=== PATIENT | female | born 1980 | race American Indian/Alaskan Native ===

== ENCOUNTER 2017-04-07 10:08 | Emergency (ER) | payer MEDICAID ==
[2017-04-07 10:12] VITALS: BP 119/84; PULSE 81; RESP 20; TEMP 97.6; O2SAT 99
--- NOTE | 2017-04-07 10:35 | C.PDOC ---
History Of Present Illness 37 year old female presents to the ER with a complaint of an allergic reaction. Patient was at work yesterday and states there was tuna and a variety of seafood ; she notes she did not eat any of it because she is allergic but reports having swelling and itchiness around her left eye. Patient took a benadryl at the time but still had swelling this morning that has worsened. Denies discharge , fever, vision change, SOB, or tongue/lip swelling. Time Seen by Provider: 04/07/17 10:22 Chief Complaint (Nursing): Allergic Reaction History Per: Patient History/Exam Limitations: no limitations Onset/Duration Of Symptoms: Days Current Symptoms Are (Timing): Still Present Possible Cause: Food Associated Symptoms: Swelling, Itching. denies: Dyspnea Home/EMS Treatment: Benadryl Recent travel outside of the [place]: No Past Medical History Reviewed: Historical Data, Nursing Documentation, Vital Signs Vital Signs: Last Vital Signs Temp 97.6 F 04/07/17 10:11 Pulse 81 04/07/17 10:11 Resp 20 04/07/17 10:11 BP 119/84 04/07/17 10:11 Pulse Ox 99 04/07/17 12:07 - Medical History PMH: No Chronic Diseases Surgical History: No Surg Hx - [facility] Procedures MONITORING NOS (12/23/12) REPAIR OB LACERATION NEC (12/23/12) Family History: States: Unknown Family Hx - Social History Hx Alcohol Use: No Hx Substance Use: No - Immunization History Hx Tetanus Toxoid Vaccination: No Hx Influenza Vaccination: No Hx Pneumococcal Vaccination: No Review Of Systems ENT: Positive for: Other (Left eye itchiness and swelling) Physical Exam - Physical Exam Appears: Non-toxic, No Acute Distress Skin: Normal Color, Warm, Dry Head: Atraumatic, Normacephalic Eye(s): bilateral: Normal Inspection, PERRL, EOMI, left: Other (Mild swelling below eye. No erythema or discharge) Oral Mucosa: Moist Tongue: Normal Appearing, No Swelling Lips: Normal Appearing, No Swelling Chest: Symmetrical, No Tenderness Cardiovascular: Rhythm Regular Respiratory: Normal Breath Sounds, No Accessory Muscle Use, No Stridor, No Wheezing Neurological/Psych: Oriented x3, Normal Speech, Normal Cognition ED Course And Treatment O2 Sat by Pulse Oximetry: 99 (room air) Pulse Ox Interpretation: Normal Progress Note: Claritin, pepcid, and prednisone administered. Patient reports improvement of symptoms, will discharge with Rx and instructions to follow up with PMD. Return precautions given. Disposition Counseled Patient/Family Regarding: Diagnosis, Need For Followup, Rx Given - Disposition Referrals: Pawel Hubbard MD [Staff Provider] - Disposition: HOME/ ROUTINE Disposition Time: 10:45 Condition: STABLE Additional Instructions: FOLLOW UP WITH YOUR DOCTOR IN 1-2 DAYS USE MEDICATIONS DIRECTED RETURN TO ER IF SYMPTOMS WORSEN Prescriptions: Loratadine [Claritin] 10 mg PO DAILY PRN #20 tab PRN Reason: itching, allergies predniSONE [predniSONE Tab] 40 mg PO DAILY #6 tab Instructions: Allergies (ED) Forms: [employer] (Bermudian), Work Excuse Print Language: CROATIAN - POA Present On Arrival: None - Clinical Impression Clinical Impression: Allergic reaction - Scribe Statement The provider has reviewed the documentation as recorded by the Scribnoah Shaw All medical record entries made by the Scribe were at my direction and personally dictated by me. I have reviewed the chart and agree that the record accurately reflects my personal performance of the history, physical exam, medical decision making, and the department course for this patient. I have also personally directed, reviewed, and agree with the discharge instructions and disposition.
== END 2017-04-07 10:45 | disposition home or self-care (01) ==
LOC: C.ER 10:08
DX: T78.49XA Other allergy, initial encounter (principal); X58.XXXA Exposure to other specified factors, initial encounter

== ENCOUNTER 2017-09-10 06:44 | Inpatient (IN) | payer MEDICAID, OTHER ==
[2017-09-10 07:25] LABS: HCG,QUALITATIVE URINE NEGATIVE (NEGATIVE)
[2017-09-10 07:32] LABS: SQUAMOUS EPITHIAL 7 /hpf (0-5); URINE BACTERIA RARE (<OCC); URINE BILIRUBIN NEGATIVE (NEGATIVE); URINE BLOOD 2+ (NEGATIVE); URINE CLARITY Hazy (Clear); URINE COLOR Yellow (YELLOW); URINE GLUCOSE (UA) NORMAL (Normal); URINE LEUKOCYTE ESTERASE NEG Leu/uL (Negative); URINE PROTEIN NEGATIVE (NEGATIVE)
--- NOTE | 2017-09-10 07:35 | C.PDOC ---
History Of Present Illness 37 y/o female presents to ED with c/o diffuse sharp abdominal since yesterday associated with chills. Patient states intensity of pain has improved but pain is still there and reports x1 episode of vomiting today. Patient denies fever, diarrhea, dysuria, back pain, vaginal bleeding or any other complaints at this time. Time Seen by Provider: 09/10/17 07:00 Chief Complaint (Nursing): Abdominal Pain History Per: Patient History/Exam Limitations: no limitations Onset/Duration Of Symptoms: Days Current Symptoms Are (Timing): Still Present Location Of Pain/Discomfort: Diffuse Radiation Of Pain To:: None Quality Of Discomfort: Sharp Associated Symptoms: Chills, Vomiting Past Medical History Reviewed: Historical Data, Nursing Documentation, Vital Signs Vital Signs: Last Vital Signs Temp 98.6 F 09/11/17 08:53 Pulse 88 09/11/17 08:53 Resp 20 09/11/17 08:53 BP 117/80 09/11/17 08:53 Pulse Ox 100 09/11/17 08:53 - Medical History PMH: No Chronic Diseases Surgical History: No Surg Hx - [facility] Procedures MONITORING NOS (12/23/12) REPAIR OB LACERATION NEC (12/23/12) Family History: States: No Known Family Hx - Social History Hx Alcohol Use: No Hx Substance Use: No - Immunization History Hx Tetanus Toxoid Vaccination: No Hx Influenza Vaccination: No Hx Pneumococcal Vaccination: No Review Of Systems Constitutional: Positive for: Chills. Negative for: Fever Gastrointestinal: Positive for: Vomiting, Abdominal Pain. Negative for: Diarrhea Genitourinary: Negative for: Vaginal Bleeding Skin: Negative for: Rash Physical Exam - Physical Exam Appears: Non-toxic, No Acute Distress Skin: Warm, Dry, No Rash Head: Atraumatic, Normacephalic Oral Mucosa: Moist Neck: Normal ROM, Supple Cardiovascular: Rhythm Regular Respiratory: Normal Breath Sounds, No Rales, No Rhonchi, No Wheezing Gastrointestinal/Abdominal: Bowel Sounds, Soft, Tenderness (diffuse), Distention , No Guarding, No Rebound Back: No CVA Tenderness Extremity: Normal ROM, Capillary Refill (<2 seconds) Neurological/Psych: Oriented x3, Normal Speech, Normal Cognition ED Course And Treatment - Laboratory Results Result Diagrams: 09/11/17 08:57 09/10/17 07:47 O2 Sat by Pulse Oximetry: 100 (RA) Pulse Ox Interpretation: Normal Medical Decision Making Medical Decision Making: Plan: Abdomen xray, Blood work ordered. Zofran and IV fluids administered [address] results from [address] Newell; diverticulitis with air. surgery resident paged, is in the or and unavailable for [address] Cristopher coley. surgery resident saw pt and did consult. pt admitted to Dr Hubbard, discussed with him. Disposition Discussed With Dr.: Pawel Hubbard - Disposition Disposition: HOSPITALIZED Disposition Time: 13:42 Condition: GOOD - Clinical Impression Clinical Impression: Diverticulitis of colon with perforation - PA / NEW BUSINESS CLERK / Resident Statement MD/DO has reviewed & agrees with the documentation as recorded. - Scribe Statement The provider has reviewed the documentation as recorded by the Tobiasibnoah Maya All medical record entries made by the Tobiasibnoah were at my direction and personally dictated by me. I have reviewed the chart and agree that the record accurately reflects my personal performance of the history, physical exam, medical decision making, and the department course for this patient. I have also personally directed, reviewed, and agree with the discharge instructions and disposition.
[2017-09-10 07:54] LABS: BASO # 0.1 K/uL (0.0-0.2); BASO % 0.4 % (0.0-2.0); EOS % 0.1 % (0.0-4.0); HEMOGLOBIN 12.4 g/dL (11.0-16.0); LYMPH # 1.3 K/uL (1.0-4.3); LYMPH % 9.3 % (20.0-40.0); MEAN CORPUSCULAR HGB CONC 33.8 g/dL (33.0-37.0); MEAN PLATELET VOLUME 9.9 fL (7.2-11.7); MONO % 6.9 % (0.0-10.0); NEUT % 83.3 % (50.0-75.0); PLATELET COUNT 241 K/uL (130-400); RBC 4.42 Mil/uL (3.80-5.20); RED CELL DISTRIBUTION WIDTH 13.2 % (11.5-14.5); WHITE BLOOD COUNT 14.4 K/uL (4.8-10.8)
[2017-09-10 08:07] LABS: ALB/GLOB RATIO 1.1 (1.0-2.1); ALBUMIN 4.1 g/dL (3.5-5.0); ALT/SGPT 20 U/L (9-52); AST/SGOT 19 U/L (14-36); BLOOD UREA NITROGEN 10 mg/dL (7-17); CALCIUM 8.8 mg/dl (8.6-10.4); GFR AFRICAN-AMERICAN > 60; GFR NON-AFRICAN AMERICAN > 60; LIPASE 15 U/L (23-300)
[2017-09-10 08:20] LABS: LYMPHOCYTE 9 % (20-40); MONOCYTE 5 % (0-10); NEUTROPHIL 86 % (50-75); PLATELET ESTIMATE NORMAL (NORMAL); TOTAL CELLS COUNTED 100
[2017-09-10] MEDS ORDERED: Iohexol 240 (50 ml) PO ONE (08:52)
--- NOTE | 2017-09-10 09:11 | RAD ---
HISTORY: Vomiting and abdominal pain COMPARISON: No prior. FINDINGS: BOWEL: Normal. No obstruction. No free air. BONES: Normal. OTHER FINDINGS: None. IMPRESSION: No significant or acute findings to account for/ related to the clinical presentation.
[2017-09-10] MEDS ORDERED: Oxycodone/Acetaminophen 5/325 mg Tab PO STA (09:15)
[2017-09-10] MEDS ORDERED: Oxycodone/Acetaminophen 5/325 mg Tab ONE (09:18)
[2017-09-10] MEDS ORDERED: Iohexol 240 (50 ml) ONE (09:24)
[2017-09-10] MEDS ORDERED: Ciprofloxacin 400mg/200ml D5W 400 MG/200 ML BAG IVPB STA (12:55)
[2017-09-10] MEDS ORDERED: metroNIDAZOLE IV 500 mg/100 ml 500 MG/100 ML BAG IVPB STA (12:56)
--- NOTE | 2017-09-10 13:01 | CT ---
PROCEDURE: CT Abdomen and Pelvis with Oral contrast. HISTORY: Diffuse abdominal pain. COMPARISON: None. TECHNIQUE: Contiguous axial images of the abdomen and pelvis. Oral contrast was administered. No IV contrast given. Coronal and Sagittal reformats generated. Radiation dose: Total exam DLP = This CT exam was performed using one or more of the following dose reduction techniques: Automated exposure control, adjustment of the mA and/or kV according to patient size, and/or use of iterative reconstruction technique. FINDINGS: LOWER THORAX: Mild passive/ dependent type atelectasis both posterior lower lung fuentes. There may also be some minimal concomitant scarring changes. . . . There is a small hiatal hernia slight wall thickening of the distal esophagus likely due to protrusion of gastric mucosa. Heart size is mildly enlarged. No significant pericardial effusion. LIVER: Liver is mildly enlarged measuring just over 19 cm in CC dimension. Liver demonstrates relatively normal attenuation without obvious masses or collections. GALLBLADDER AND BILE DUCTS: Gallbladder is physiologically distended. No evidence of intraluminal gallbladder calculi PANCREAS: Unremarkable. No mass. No ductal dilatation. SPLEEN: Spleen exhibits normal size and attenuation pattern without mass collection or calcification. This ADRENALS: There are no adrenal lesions. KIDNEYS AND URETERS: Unrema kidneys demonstrate relatively symmetric size. No evidence of nephrolithiasis or hydronephrosis. No obvious renal mass or collection. BLADDER: Urinary bladder is incompletely distended which may account for slight thick-walled appearance. Correlation with urinalysis recommended. REPRODUCTIVE: Uterus is slightly bulky in appearance without prominent endometrial canal. . Follow-up pelvic ultrasound as suggested for further evaluation. APPENDIX: Normal appearing appendix best seen on coronal image number [id number]. BOWEL: Evaluation of the bowel is somewhat limited due to incomplete opacification. Stomach is distended with oral contrast material and air. . The visualized loops of small bowel exhibit relatively normal contour and caliber. No evidence of acute mechanical small bowel obstruction with oral contrast material seen extending into large bowel to the level of the hepatic flexure region. . There is wall thickening a short segment of the sigmoid colon which contains several scattered colonic diverticula. Findings are most consistent with acute diverticulitis. . The additionally, there are infiltration changes seen in the adjacent mesentery with at least 1 discrete collection of air which measures approximately 17.3 x 11.3 mm best seen on axial image number [id number]. This could represent a large colonic diverticulum or possibly a small of walled-off perforation or small abscess. Clinical correlation recommended. PERITONEUM: As above. . Small fat containing umbilical hernia. LYMPH NODES: Unremarkable. No enlarged lymph nodes. VASCULATURE: Unremarkable. No aortic aneurysm. BONES: The osseous structures appear intact. OTHER FINDINGS: None. IMPRESSION: Findings consistent with acute diverticulitis involving a short segment of the sigmoid colon with marked wall thickening and infiltration of the adjacent mesenteric. There is a small collection of air seen adjacent to anterior inferior margin of this segment of inflamed bowel that could represent a large colonic diverticulum, walled-off perforation and/or abscess appear clinical correlation recommended. Note these findings were discussed with emergency room ANN Arevalo at approximately 12:50 p.m. with written down and read back verification. . Hepatomegaly. Bulky uterus with prominent endometrial canal. Follow-up of pelvic ultrasound recommended. See above as for additional details.
[2017-09-10] MEDS ORDERED: Ciprofloxacin 400mg/200ml D5W 400 MG/200 ML BAG IVPB ONE (13:05)
[2017-09-10] MEDS ORDERED: metroNIDAZOLE IV 500 mg/100 ml 500 MG/100 ML BAG ONE (13:06)
--- NOTE | 2017-09-10 14:35 | CP.PCM.CON ---
History of Present Illness - History of Present Illness History of Present Illness: Surgery: Dr. Nicholas Pt is a 37F with no significant PMHx who presents to for complaints of abdominal pain x 1 day. Pt states pain started yesterday afternoon and was diffuse in nature. She waited for the pain to get better, however pain got worse and this morning she decided to come to the hospital. She also admits to 1 episode of NBNB vomiting this morning and states her last BM was yesterday and was normal. Pt denies having similar episode in the past. Denies F/C, chest pain or SOB. Pt states she has never had a colonoscopy or endoscopy. In the ER, pt had CT abdomen/pelvis which shows sigmoid diverticulitis with possible microperforation. Surgery called to evaluate PMH: denies PSH: tubal ligation SocialHx: denies smoking/EtOH NKDA Review of Systems - Review of Systems All systems: reviewed and no additional remarkable complaints except (as per HPI ) Past Patient History - Infectious Disease Hx of Infectious Diseases: None - Past Social History Smoking Status: Never Smoked - PSYCHIATRIC Hx Substance Use: No - SURGICAL HISTORY Hx Surgeries: No - ANESTHESIA Hx Anesthesia: No Hx Anesthesia Reactions: No Meds Allergies/Adverse Reactions: Allergies Allergy/AdvReac Type Severity Reaction Status Date / Time lobster Allergy SWELLING Uncoded 09/10/17 06:52 - Medications Medications: Current Medications Ciprofloxacin (Cipro 400mg/200ml Dsw) 400 mg in 200 mls @ 133 mls/hr IVPB Q12H ZAK PRN Reason: Protocol Metronidazole (Flagyl) 500 mg in 100 mls @ 100 mls/hr IVPB Q8 ZAK PRN Reason: Protocol Physical Exam - Constitutional Appears: Well, No Acute Distress - Head Exam Head Exam: ATRAUMATIC, NORMOCEPHALIC - Eye Exam Eye Exam: Normal appearance - ENT Exam ENT Exam: Mucous Membranes Moist - Respiratory Exam Respiratory Exam: NORMAL BREATHING PATTERN - Cardiovascular Exam Cardiovascular Exam: Tachycardia - GI/Abdominal Exam GI & Abdominal Exam: Soft, Tenderness (periumbilical ). absent: Distended, Guarding, Rebound - Neurological Exam Neurological exam: Alert, Oriented x3 - Skin Skin Exam: Dry, Warm Results - Vital Signs Recent Vital Signs: Last Vital Signs Temp 99.1 F 09/10/17 12:56 Pulse 84 04/20/18 12:56 Resp 18 09/10/17 12:56 BP 99/62 L 09/10/17 12:56 Pulse Ox 100 09/10/17 13:47 - Labs Result Diagrams: 09/10/17 07:47 09/10/17 07:47 Labs: Laboratory Results - last 24 hr 09/10/17 09/10/17 09/10/17 07:08 07:47 07:47 WBC 14.4 H RBC 4.42 Hgb 12.4 Hct 36.7 MCV 83.0 MCH 28.0 MCHC 33.8 RDW 13.2 Plt Count 241 MPV 9.9 Neut % (Auto) 83.3 H Lymph % (Auto) 9.3 L Emm[place] % (Auto) 6.9 Eos % (Auto) 0.1 Baso % (Auto) 0.4 Neut # (Auto) 12.0 H Lymph # (Auto) 1.3 Emm[place] # (Auto) 1.0 H Eos # (Auto) 0.0 Baso # (Auto) 0.1 Neutrophils % (Manual) 86 H Lymphocytes % (Manual) 9 L Monocytes % (Manual) 5 Platelet Estimate Normal Sodium 139 Potassium 3.9 Chloride 99 Carbon Dioxide 26 Anion Gap 19 BUN 10 Creatinine 0.8 Est GFR ( Amer) > 60 Est GFR (Non-Af Amer) > 60 Random Glucose 103 Calcium 8.8 Total Bilirubin 0.8 AST 19 ALT 20 Alkaline Phosphatase 81 Total Protein 7.7 Albumin 4.1 Globulin 3.6 Albumin/Globulin Ratio 1.1 Lipase 15 L Urine Color Yellow Urine Clarity Hazy Urine pH 7.0 Ur Specific [place] 1.018 Urine Protein Negative Urine Glucose (UA) Normal Urine Ketones Negative Urine Blood 2+ H Urine Nitrate Negative Urine Bilirubin Negative Urine Urobilinogen 2.0 H Ur Leukocyte Esterase Neg Urine WBC (Auto) 1 Urine RBC (Auto) 15 H Ur Squamous Epith Cells 7 H Urine Bacteria Rare Urine HCG, Qual Negative - Imaging and Cardiology CT scan - abdomen Status: Image reviewed by me, Report reviewed by me Assessment & Plan - Assessment and Plan (Free Text) Assessment: 37F with acute diverticulitis; [place] Class Ia Plan: - keep NPO with IVF & IV abx - conservative management with pain control - serial abdominal exams - will continue to monitor - d/w Dr. Cristopher Saenz, PGY-3
[2017-09-10] MEDS ORDERED: Lactated Ringer's 1,000 ML ONE (16:13)
[2017-09-10] MEDS: Lactated Ringer's 1,000 ML IV SCH (16:13)
[2017-09-10 19:44] VITALS: RESP 20
[2017-09-10] MEDS: metroNIDAZOLE IV 500 mg/100 ml 500 MG/100 ML BAG IVPB SCH (21:55)
[2017-09-11] MEDS: Ciprofloxacin 400mg/200ml D5W 400 MG/200 ML BAG IVPB SCH ×2 (02:38→14:12)
[2017-09-11] MEDS: Lactated Ringer's 1,000 ML IV SCH ×4 (02:39→20:51)
[2017-09-11] MEDS: metroNIDAZOLE IV 500 mg/100 ml 500 MG/100 ML BAG IVPB SCH ×3 (05:40→21:30)
--- NOTE | 2017-09-11 08:44 | CP.PCM.PN ---
Subjective - Date & Time of Evaluation Date of Evaluation: 09/11/17 Time of Evaluation: 06:50 - Subjective Subjective: Patient seen and examined at bedside this AM. patient denies any nausea, vomiting, is passing gas but no bowel movement. States her pain is greatly improved. Objective - Vital Signs/Intake and Output Vital Signs (last 24 hours): Temp Pulse Resp BP Pulse Ox 99.9 F H 98 H 20 120/70 97 09/11/17 00:00 09/11/17 00:00 09/11/17 00:00 09/11/17 00:00 09/11/17 00:00 - Medications Medications: Current Medications Ciprofloxacin (Cipro 400mg/200ml Dsw) 400 mg in 200 mls @ 133 mls/hr IVPB Q12H ZAK PRN Reason: Protocol Last Admin: 09/11/17 02:38 Dose: 133 mls/hr Metronidazole (Flagyl) 500 mg in 100 mls @ 100 mls/hr IVPB Q8 ZAK PRN Reason: Protocol Last Admin: 09/11/17 05:40 Dose: 100 mls/hr Lactated Ringer's (Lactated Ringer's) 1,000 mls @ 125 mls/hr IV .Q8H ZAK Last Admin: 09/11/17 02:39 Dose: Not Given - Labs Labs: 09/10/17 07:47 09/10/17 07:47 - Constitutional Appears: Well, Non-toxic, No Acute Distress - Head Exam Head Exam: ATRAUMATIC, NORMOCEPHALIC - Eye Exam Eye Exam: Normal appearance. absent: Conjunctival injection, Scleral icterus - ENT Exam ENT Exam: Mucous Membranes Moist, Normal Oropharynx - Respiratory Exam Respiratory Exam: NORMAL BREATHING PATTERN. absent: Accessory Muscle Use, Respiratory Distress - GI/Abdominal Exam GI & Abdominal Exam: Distended (mild), Soft, Tenderness (mild RLQ and LLQ tenderness) - Extremities Exam Extremities Exam: absent: Calf Tenderness, Pedal Edema, Tenderness - Neurological Exam Neurological Exam: Alert, Awake, Oriented x3 - Skin Skin Exam: Dry, Intact, Normal Color, Warm Assessment and Plan - Assessment and Plan (Free Text) Assessment: 37F with diverticulitis of the sigmoid colon Plan: -Continue NPO -F/U am labs -Monitor bowel function -PRN pain for nausea and vomiting -Continue antibiotics -Encourage ambulation -No indication for surgical intervention at this time, will continue to monitor closely. Patient will need a colonoscopy as outpatient Discussed with Dr. Cristopher Stapleton, PGY2
[2017-09-11 09:17] LABS: HEMOGLOBIN 10.9 g/dL (11.0-16.0); MEAN CELL VOLUME 83.2 fL (81.0-99.0); MEAN CORPUSCULAR HEMOGLOBIN 27.6 pg (27.0-31.0); MEAN CORPUSCULAR HGB CONC 33.1 g/dL (33.0-37.0); MEAN PLATELET VOLUME 9.6 fL (7.2-11.7); RBC 3.95 Mil/uL (3.80-5.20); RED CELL DISTRIBUTION WIDTH 13.3 % (11.5-14.5); WHITE BLOOD COUNT 12.8 K/uL (4.8-10.8)
[2017-09-12] MEDS: Lactated Ringer's 1,000 ML IV SCH (00:30)
[2017-09-12] MEDS: Ciprofloxacin 400mg/200ml D5W 400 MG/200 ML BAG IVPB SCH ×2 (01:01→13:59)
[2017-09-12] MEDS: metroNIDAZOLE IV 500 mg/100 ml 500 MG/100 ML BAG IVPB SCH ×2 (05:19→13:58)
[2017-09-12] MEDS: Potassium Ch 20mEq in D5-1/2NS 1,000 ML IV SCH ×2 (05:25→23:21)
[2017-09-12 07:54] LABS: BASO % 0.4 % (0.0-2.0); EOS # 0.1 K/uL (0.0-0.7); EOS % 1.3 % (0.0-4.0); LYMPH # 1.7 K/uL (1.0-4.3); LYMPH % 19.9 % (20.0-40.0); MEAN CORPUSCULAR HGB CONC 33.7 g/dL (33.0-37.0); MEAN PLATELET VOLUME 10.2 fL (7.2-11.7); MONO # 0.6 K/uL (0.0-0.8); MONO % 7.3 % (0.0-10.0); NEUT % 71.1 % (50.0-75.0); NRBC % 0.1 % (0.0-2.0); RBC 3.95 Mil/uL (3.80-5.20); RED CELL DISTRIBUTION WIDTH 13.2 % (11.5-14.5); WHITE BLOOD COUNT 8.4 K/uL (4.8-10.8)
--- NOTE | 2017-09-12 08:36 | CP.PCM.PN ---
Subjective - Date & Time of Evaluation Date of Evaluation: 09/12/17 Time of Evaluation: 07:00 - Subjective Subjective: Patient seen and examined at bedside this AM. No adverse events overnight. Patient did have several bouts of diarrhea overnight and is passing gas but states that she feels greatly improved in general, no nausea, vomiting, or pain. Objective - Vital Signs/Intake and Output Vital Signs (last 24 hours): Temp Pulse Resp BP Pulse Ox 98.2 F 75 20 127/77 97 09/12/17 08:05 09/12/17 08:05 09/12/17 08:05 09/12/17 08:05 09/12/17 08:05 Intake and Output: 09/12/17 09/12/17 06:59 18:59 Intake Total 3000 Balance 3000 - Medications Medications: Current Medications Acetaminophen (Tylenol 325mg Tab) 650 mg PO Q6 PRN PRN Reason: Pain, moderate (4-7) Ciprofloxacin (Cipro 400mg/200ml Dsw) 400 mg in 200 mls @ 133 mls/hr IVPB Q12H ZAK PRN Reason: Protocol Last Admin: 09/12/17 01:01 Dose: 133 mls/hr Metronidazole (Flagyl) 500 mg in 100 mls @ 100 mls/hr IVPB Q8 ZAK PRN Reason: Protocol Last Admin: 09/12/17 05:19 Dose: 100 mls/hr Potassium Chloride/Dextrose/Sod Cl (Potassium Chl 20 Meq In D5-1/2ns) 1,000 mls @ 115 mls/hr IV .Q8H42M ON LICENSE OF [facility] Last Admin: 09/12/17 05:25 Dose: 115 mls/hr Ondansetron HCl (Zofran Inj) 4 mg IVP Q6H PRN PRN Reason: Nausea/Vomiting - Labs Labs: 09/12/17 07:42 09/10/17 07:47 - Constitutional Appears: Well, Non-toxic, No Acute Distress - Head Exam Head Exam: ATRAUMATIC, NORMOCEPHALIC - Eye Exam Eye Exam: Normal appearance. absent: Conjunctival injection, Scleral icterus - ENT Exam ENT Exam: Mucous Membranes Moist, Normal Oropharynx - Respiratory Exam Respiratory Exam: NORMAL BREATHING PATTERN. absent: Accessory Muscle Use, Respiratory Distress - GI/Abdominal Exam GI & Abdominal Exam: Soft, Tenderness (mild tenderness in the BL lower quadrans) . absent: Distended, Rigid, Rebound - Neurological Exam Neurological Exam: Alert, Awake, Oriented x3 - Psychiatric Exam Psychiatric exam: Normal Affect, Normal Mood - Skin Skin Exam: Dry, Intact, Normal Color, Warm Assessment and Plan - Assessment and Plan (Free Text) Assessment: 37F with acute diverticulitis with possible microperforation, clinically improving Plan: -Continue to monitor vitals and bowel function -WBC wnl today -Advance to [facility]D -PRN tylenol for pain -No surgical intervention indicated at this time--will continue to follow -will need colonoscopy as an outpatient after acute flare has resolved Discussed with Dr. Cristopher Stapleton PGY2
--- NOTE | 2017-09-13 07:23 | CP.PCM.PN ---
Subjective - Date & Time of Evaluation Date of Evaluation: 09/13/17 Time of Evaluation: 09:00 - Subjective Subjective: Medicine Progress Note- Dr. Hubbard's service Patient seen and examined in no apparent acute distress. Patient states that she was experiencing abdominal pain four days prior. Patient states that it was diffuse in nature and thus she came to the hospital for further evaluation. Patient states that she non bloody- non bilious vomited once while at home. Patient being seen here by the surgery team. She states that her pain improved over the course of her stay here. She admits to feeling better yesterday. She has been tolerating a liquid diet, and been having bowel movements. She currently denies chest pain, nausea, vomiting, or abdominal pain at this time. PMHx- denies PSHx TUbal ligation 3-4 years prior Fam Hx- Parents have DM Social Hx- denies tobacco, illicit drug use or alcohol use Meds- denies Allergies- Patietn denied; however the medical record states lobster. Will verify Objective - Vital Signs/Intake and Output Vital Signs (last 24 hours): Temp Pulse Resp BP Pulse Ox 98.1 F 66 20 145/91 H 97 09/13/17 00:00 09/13/17 00:00 09/13/17 00:00 09/13/17 00:00 09/13/17 00:00 Intake and Output: 09/13/17 09/13/17 06:59 18:59 Intake Total 500 Balance 500 - Medications Medications: Current Medications Acetaminophen (Tylenol 325mg Tab) 650 mg PO Q6 PRN PRN Reason: Pain, moderate (4-7) Ciprofloxacin (Cipro) 500 mg PO BID ZAK PRN Reason: Protocol Last Admin: 09/12/17 17:58 Dose: 500 mg Potassium Chloride/Dextrose/Sod Cl (Potassium Chl 20 Meq In D5-1/2ns) 1,000 mls @ 115 mls/hr IV .Q8H42M [facility] Last Admin: 09/12/17 23:21 Dose: Not Given Metronidazole (Flagyl) 500 mg PO Q8 ZAK PRN Reason: Protocol Last Admin: 09/13/17 05:46 Dose: 500 mg Ondansetron HCl (Zofran Inj) 4 mg IVP Q6H PRN PRN Reason: Nausea/Vomiting Ondansetron HCl (Zofran Odt) 4 mg PO Q6H PRN PRN Reason: Nausea/Vomiting - Labs Labs: 09/12/17 07:42 09/10/17 07:47 - Constitutional Appears: Non-toxic, No Acute Distress - Head Exam Head Exam: ATRAUMATIC, NORMAL INSPECTION, NORMOCEPHALIC - Eye Exam Eye Exam: EOMI, Normal appearance, PERRL Pupil Exam: NORMAL ACCOMODATION - ENT Exam ENT Exam: Mucous Membranes Moist - Neck Exam Neck Exam: Full ROM - Respiratory Exam Respiratory Exam: NORMAL BREATHING PATTERN. absent: Wheezes - Cardiovascular Exam Cardiovascular Exam: +S1, +S2 - GI/Abdominal Exam GI & Abdominal Exam: Soft, Normal Bowel Sounds. absent: Distended, Guarding, Rigid, Tenderness - Extremities Exam Extremities Exam: Full ROM, Normal Inspection - Back Exam Back Exam: Full ROM, NORMAL INSPECTION - Neurological Exam Neurological Exam: Alert, Awake, Oriented x3 - Psychiatric Exam Psychiatric exam: Normal Affect, Normal Mood - Skin Skin Exam: Dry, Normal Color, Warm Assessment and Plan (1) Diverticulitis Assessment & Plan: Patient with leukocytosis on admission, Now resolved Initially NPO. Now tolerating a full liquid diet- Will consider advancing to soft bland diet Patient on Cipro and Flagyl and IVF with potassium supplementation Will add on Florastor Nausea control Pain control F/U Surgery recommendations Patient would benefit from colonoscopy in the future once acute bout has resolved Status: Acute (2) Prophylactic measure Assessment & Plan: SCDs Ambulates No GI Prophylaxis indicated at this point DC instructions Patient is medically stable for discharge home. Patient to follow up with Dr. Hubbard's office within one week. Patient should follow up with Surgery team, Dr. Nicholas within two weeks. Patient will need a referral to see a GI specialist to obtain a colonoscopy. Patient to continue a full liquid / semi soft diet through the end of the week. Patient to continue antibiotics Flagyl and Ciprofloxacin as indicated. Patient should eat a probiotic yogurt daily. If symptoms return, go to the emergency room. instructions explained to patient who is aware. Management and planning per attending Dr. Hubbard. Status: Acute
[2017-09-13 07:33] VITALS: BP 121/81; PULSE 70; TEMP 98.2; O2SAT 96
--- NOTE | 2017-09-13 07:53 | CP.PCM.PN ---
Subjective - Date & Time of Evaluation Date of Evaluation: 09/13/17 Time of Evaluation: 07:48 - Subjective Subjective: surgery: Dr. Nicholas Pt seen and examined. No acute overnight events. Pt states she's feeling a lot better and her abdominal pain has resolved. She is able to tolerate liquids without N/V. Denies F/C. Objective - Vital Signs/Intake and Output Vital Signs (last 24 hours): Temp Pulse Resp BP Pulse Ox 98.2 F 70 20 121/81 96 09/13/17 07:30 09/13/17 07:30 09/13/17 07:30 09/13/17 07:30 09/13/17 07:30 Intake and Output: 09/13/17 09/13/17 06:59 18:59 Intake Total 500 Balance 500 - Medications Medications: Current Medications Acetaminophen (Tylenol 325mg Tab) 650 mg PO Q6 PRN PRN Reason: Pain, moderate (4-7) Ciprofloxacin (Cipro) 500 mg PO BID ZAK PRN Reason: Protocol Last Admin: 09/12/17 17:58 Dose: 500 mg Potassium Chloride/Dextrose/Sod Cl (Potassium Chl 20 Meq In D5-1/2ns) 1,000 mls @ 115 mls/hr IV .[id number] [facility] [place] Last Admin: 09/12/17 23:21 Dose: Not Given Metronidazole (Flagyl) 500 mg PO Q8 ZAK PRN Reason: Protocol Last Admin: 09/13/17 05:46 Dose: 500 mg Ondansetron HCl (Zofran Inj) 4 mg IVP Q6H PRN PRN Reason: Nausea/Vomiting Ondansetron HCl (Zofran Odt) 4 mg PO Q6H PRN PRN Reason: Nausea/Vomiting - Labs Labs: 09/12/17 07:42 09/10/17 07:47 - Constitutional Appears: Well, No Acute Distress - Head Exam Head Exam: ATRAUMATIC, NORMOCEPHALIC - Eye Exam Eye Exam: Normal appearance - ENT Exam ENT Exam: Mucous Membranes Moist - Respiratory Exam Respiratory Exam: NORMAL BREATHING PATTERN - Cardiovascular Exam Cardiovascular Exam: RRR - GI/Abdominal Exam GI & Abdominal Exam: Soft. absent: Distended, Guarding, Tenderness - Neurological Exam Neurological Exam: Alert, Awake, Oriented x3 - Skin Skin Exam: Dry, Warm Assessment and Plan - Assessment and Plan (Free Text) Assessment: 37F with acute diverticulitis; resolving Plan: - advance to FLD this AM - continue ABX - plan for DC with ABX and liquid/soft diet for another few days at home - d/w Dr. Cristopher Saenz, PGY-3
[2017-09-13] MEDS: Potassium Ch 20mEq in D5-1/2NS 1,000 ML IV SCH (08:21)
--- NOTE | 2017-09-13 08:44 | HP ---
HISTORY OF PRESENT ILLNESS: A 37-year-old female came to the hospital with abdominal pain, the patient found to have diverticular abscess. The patient came, advised admission. The patient denied history of previous episodes in the past. The patient is a smoker. PHYSICAL EXAMINATION: GENERAL: The patient is awake, alert, and oriented. VITAL SIGNS: Temperature 98, pulse 90. HEENT: Within normal limits. NECK: Supple. CHEST: Symmetrical. HEART: Regular. ABDOMEN: Generalized tenderness more in the right lower quadrant. EXTREMITIES: No edema. ASSESSMENT AND PLAN: The patient suffers from acute diverticulitis and diverticular abscess. The patient on bed rest, IV antibiotics, supportive care. Pawel Hubbard MD
--- NOTE | 2017-09-13 08:48 | PN ---
DATE: The patient showed good improvement. Good response to antibiotics, as per Surgery. Pawel Hubbard MD
[2017-09-13] MEDS ORDERED: Saccharomyces Boulardi 250 mg Cap PO SCH (12:00)
--- NOTE | 2017-09-13 15:26 | CT ---
PROCEDURE: CT Abdomen and Pelvis without intravenous contrast HISTORY: re-eval sigmoid diverticulitis w/poss abscess COMPARISON: 09/10/2017 TECHNIQUE: Without contrast.. Contrast Dose: 0 Radiation dose: Total exam DLP = Total exam DLP = 1117.30 mGy-cm. This CT exam was performed using one or more of the following dose reduction techniques: Automated exposure control, adjustment of the mA and/or kV according to patient size, and/or use of iterative reconstruction technique. FINDINGS: LOWER THORAX: Unremarkable. LIVER: Unremarkable. No gross lesion or ductal dilatation. GALLBLADDER AND BILE DUCTS: Unremarkable. PANCREAS: Unremarkable. No gross lesion or ductal dilatation. SPLEEN: Unremarkable. ADRENALS: Unremarkable. No mass. KIDNEYS AND URETERS: Unremarkable. No hydronephrosis. No solid mass. VASCULATURE: Unremarkable. No aortic aneurysm. BOWEL: Mural thickening of a moderate segment of sigmoid colon at least 7-8 cm in length. Adjacent inflammatory change is again noted. There is no evidence of abscess although there is a collection of air adjacent to the sigmoid colon or possibly intramural at this time, without associated fluid. This is smaller than on prior examination. This may represent an abscess that has communicated with and drained into the sigmoid colon. Please note that evaluation for abscess is limited by the absence of intravenous contrast in this examination. There is no free intraperitoneal air. There is diverticulosis of the descending colon. There is no evidence bowel obstruction. . APPENDIX: Unremarkable. Normal appendix. PERITONEUM: Unremarkable. No free fluid. No free air. LYMPH NODES: Unremarkable. No enlarged lymph nodes. BLADDER: Unremarkable. REPRODUCTIVE: Normal retroverted uterus. BONES: No acute fracture. OTHER FINDINGS: None. IMPRESSION: Acute sigmoid diverticulitis. No definite abscess. Collection of air adjacent to or within the wall of the sigmoid colon decreased in size from prior examination. Uncertain significance. Limited sensitivity for determination of abscess in the absence of intravenous contrast administration. No other significant abnormality.
== END 2017-09-13 17:00 | disposition home or self-care (01) | DRG 182 ==
LOC: C.ER 06:44 → SUPCPDRO 06:44 → C.9E 13:46 → C.3T 19:16
PROVIDERS: ADMIT Internal Medicine Pulmonary Disease; ATTEND Internal Medicine Pulmonary Disease
DX: K57.20 Diverticulitis of large intestine with perforation and abscess without bleeding (principal); Z98.51 Tubal ligation status

== ENCOUNTER 2018-02-07 08:32 | Emergency (ER) | payer OTHER ==
[2018-02-07 08:46] VITALS: RESP 18; O2SAT 100
[2018-02-07] MEDS ORDERED: Naproxen 550 mg Tab PO STA (09:09)
[2018-02-07] MEDS ORDERED: Naproxen 550 mg Tab PO ONE (09:20)
[2018-02-07 10:08] VITALS: BP 126/81; PULSE 64; TEMP 98.5
--- NOTE | 2018-02-07 10:23 | C.PDOC ---
History Of Present Illness 37 year old female presents to ED for evaluation of left posterior shoulder pain for the past 2 days. States she attended a baby shower where she was lifting heavy objects. Denies trauma, fever, vomiting, diarrhea, and other associated symptoms. Time Seen by Provider: 02/07/18 09:02 Chief Complaint (Nursing): Back Pain History Per: Patient History/Exam Limitations: no limitations Onset/Duration Of Symptoms: Days Current Symptoms Are (Timing): Still Present Quality Of Discomfort: Unable To Describe Previous Symptoms: None Associated Symptoms: None Recent travel outside of the [place]: No Past Medical History Reviewed: Historical Data, Nursing Documentation, Vital Signs Vital Signs: Last Vital Signs Temp 98.5 F 02/07/18 10:08 Pulse 64 02/07/18 10:08 Resp 18 02/07/18 10:08 BP 126/81 02/07/18 10:08 Pulse Ox 100 02/07/18 12:52 - Medical History PMH: Diverticulitis - [facility] MONITORING NOS (12/23/12) REPAIR OB LACERATION NEC (12/23/12) Family History: States: Unknown Family Hx - Social History Hx Alcohol Use: No Hx Substance Use: No - Immunization History Hx Tetanus Toxoid Vaccination: No Hx Influenza Vaccination: No Hx Pneumococcal Vaccination: No Review Of Systems Constitutional: Negative for: Fever, Chills Gastrointestinal: Negative for: Nausea, Vomiting Musculoskeletal: Positive for: Shoulder Pain (left ) Neurological: Negative for: Weakness, Numbness Physical Exam - Physical Exam Appears: Non-toxic, Other (mild discomfort) Skin: Normal Color, Warm, Dry Head: Atraumatic, Normacephalic Gastrointestinal/Abdominal: Normal Exam, Soft, No Tenderness, No Guarding, No Rebound Back: No Vertebral Tenderness, Paraspinal Tenderness (left lumbar ) Extremity: Capillary Refill (<2 seconds), No Deformity, No Swelling, Other ( left shoulder: mild tenderness to palpation ) Pulses: Left Radial: Normal, Right Radial: Normal Neurological/Psych: Oriented x3, Normal Speech, Normal Motor, Normal Sensation Gait: Steady ED Course And Treatment O2 Sat by Pulse Oximetry: 100 (RA) Pulse Ox Interpretation: Normal Progress Note: Urine HCG. Given Naproxen and Flexeril. Patient stable for discharge home. Prescribed Flexeril and Naproxen. Disposition Counseled Patient/Family Regarding: Diagnosis, Need For Followup, Rx Given - Disposition Referrals: Pawel Hubbard MD [Staff Provider] - Disposition: HOME/ ROUTINE Disposition Time: 10:20 Condition: STABLE Additional Instructions: FOLLOW UP WITH YOUR DOCTOR IN 1-2 DAYS USE MEDICATIONS NEEDED RETURN TO ER IF SYMPTOMS WORSEN Prescriptions: Cyclobenzaprine [Flexeril] 10 mg PO BID PRN #15 tab PRN Reason: Muscle Spasm Naproxen [Naprosyn] 1 tab PO BID PRN #25 tab PRN Reason: Pain Instructions: Muscle Spasms (DC) Forms: [employer] (Lithuanian), Work Excuse Print Language: OCCITAN - Clinical Impression Clinical Impression: Lumbar sprain, Muscle spasm - Scribe Statement The provider has reviewed the documentation as recorded by the Scribe (Henny Domínguez) Provider Attestation: All medical record entries made by the Scribe were at my direction and personally dictated by me. I have reviewed the chart and agree that the record accurately reflects my personal performance of the history, physical exam, medical decision making, and the department course for this patient. I have also personally directed, reviewed, and agree with the discharge instructions and disposition.
== END 2018-02-07 10:26 | disposition home or self-care (01) ==
LOC: C.ER 08:32
DX: S33.5XXA Sprain of ligaments of lumbar spine, initial encounter (principal); X50.0XXA Overexertion from strenuous movement or load, initial encounter; M62.838 Other muscle spasm